=== PATIENT | male | born 1965 | race Caucasian/White ===

== ENCOUNTER 2017-08-02 07:10 | Inpatient (IN) | payer BC ==
[~2017-08-02 07:10] MED LIST: Dexamethasone 4 MG/ML 5 ML MDV ONE; Ketorolac 30 MG/ML SDV ONE; Lactated Ringers 1,000 ML IV SCH; Lactated Ringers 1,000 ML ONE; Lidocaine 1%/Sod Bicarbonate in NS 8.4% 1 ML Syringe PRN; Midazolam 1 MG/ML 2 ML SDV ONE; Morphine 10 MG/ML Syringe ONE; Morphine PF 1 MG/ML Amp ONE; Ondansetron 4 MG/2 ML SDV ONE; Propofol 200 MG/20 ML SDV ONE; Sodium Chloride 0.9% 10 ML Syringe FLUSH PRN; ceFAZolin 1 GM Vial ONE; fentaNYL 100 MCG/2 ML SDV ONE
[2017-08-02] MEDS ORDERED: Bupivacaine 0.25% 30 ML SDV ONE (07:40)
[2017-08-02] MEDS ORDERED: Vancomycin 1 GM SDV ONE (07:40)
[2017-08-02] MEDS ORDERED: ceFAZolin 1 GM Vial ONE (07:40)
[2017-08-02] MEDS ORDERED: Iodine/Sodium Iodide 2% Tincture 30 ML Bottle ONE (07:40)
--- NOTE | 2017-08-02 08:11 | PCM.PREANE ---
Preanesthetic Assessment - Anesthesia/Transfusion/Family Hx Anesthesia History: No Prior Anesthesia Family History of Anesthesia Reaction: No Transfusion History: No Prior Transfusion(s) Intubation History: Unknown - Review of Systems General: No Symptoms Pulmonary: No Symptoms (REMY with CPAP noted) Cardiovascular: No Symptoms (History of HTN) Gastrointestinal: No Symptoms (GERD) Neurological: No Symptoms ('chronic left sided low back pain without sciatica) Other: Reports: None (Adenomatous polyp of transverse colon noted on history.) - Physical Assessment NPO Status Date: 08/01/17 NPO Status Time: 19:30 Pulse: 85 O2 Sat by Pulse Oximetry: 95 Respiratory Rate: 16 Blood Pressure: 145/93 Temperature: 37.1 C Vital Signs: Last Vital Signs Temp 37.1 C 08/02/17 07:10 Pulse 85 08/02/17 07:10 Resp 16 08/02/17 07:10 BP 145/93 H 08/02/17 07:10 Pulse Ox 95 08/02/17 07:10 Height: 1.75 m Weight: 88 kg ASA Class: 2 Mental Status: Alert & Oriented x3 Airway Class: Mallampati = 2 Dentition: Reports: Normal Dentition, [place](s), [place] Thyro-Mental Finger Breadths: 3 Mouth Opening Finger Breadths: 3 ROM/Head Extension: Full Lungs: Clear to Auscultation, Normal Respiratory Effort Cardiovascular: Regular Rate, Regular Rhythm, No Murmurs - Lab Values: Laboratory Last Values MRSA (PCR) Negative 07/17/17 10:44 Platelets= 210,000 All other labs reviewed and noted and within acceptable ranges to proceed with scheduled procedure. - Imaging/EKG Impressions: EKG: NSR rate= 94, old inferior infarct CXR: negative Echocardiogram: EF= 68% - Allergies Allergies/Adverse Reactions: Allergies Allergy/AdvReac Type Severity Reaction Status Date / Time No Known Allergies Allergy Verified 08/01/17 12:52 - Anesthesia Plan Pre-Op Medication Ordered: None - Acknowledgements Anesthesia Type Planned: General Anesthesia, Spinal Pt an Appropriate Candidate for the Planned Anesthesia: Yes Alternatives and Risks of Anesthesia Discussed w Pt/Guardian: Yes Pt/Guardian Understands and Agrees with Anesthesia Plan: Yes PreAnesthesia Questionnaire HEENT History: Reports: None Cardiovascular History: Reports: Hypertension, Other (See Below) Other Cardiovascular History: palpitations, tachycardia Respiratory History: Reports: None Gastrointestinal History: Reports: None Genitourinary History: Reports: None 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 Musculoskeletal History: Reports: Back Pain, Chronic Neurological History: Reports: None Psychiatric History: Reports: None Endocrine/Metabolic History: Reports: None Hematologic History: Reports: None Immunologic History: Reports: None Oncologic (Cancer) History: Reports: None Dermatologic History: Reports: None - Past Surgical History Head Surgeries/Procedures: Reports: None HEENT Surgical History: Reports: None Cardiovascular Surgical History: Reports: None Respiratory Surgical History: Reports: None GI Surgical History: Reports: None Female Surgical History: Reports: None Male Surgical History: Reports: None Endocrine Surgical History: Reports: None Neurological Surgical History: Reports: None Musculoskeletal Surgical History: Reports: None Oncologic Surgical History: Reports: None Dermatological Surgical History: Reports: None - SUBSTANCE USE Smoking Status *Q: Never Smoker Second Hand Smoke Exposure: No Recreational Drug Use History: No - HOME MEDS Home Medications: Home Meds Calcium Carbonate/Vitamin D3 [Calcium 600 + Vit D 400 Softgl] 1 tab PO DAILY [History] Cholecalciferol (Vitamin D3) [Vitamin D3] 5,000 unit PO DAILY 08/01/17 [History] Lansoprazole [Prevacid] 15 mg PO Q48H 08/01/17 [History] Losartan [Cozaar] 100 mg PO DAILY 08/01/17 [History] amLODIPine [Norvasc] 5 mg PO DAILY 08/01/17 [History] - CURRENT (IN HOUSE) MEDS Current Meds: Current Medications Aspirin (Ecotrin) 325 mg PO BID MIKI Bisacodyl (Dulcolax) 5 mg PO DAILY PRN PRN Reason: Constipation Morphine Sulfate 8 mg/Epinephrine HCl 0.3 mg/Cefuroxime Sodium 750 mg/Ketorolac Tromethamine 30 mg/Sodium Chloride 27.9 ml 0 mg .XX ONETIME ONE Stop: 08/02/17 08:31 Cyclobenzaprine HCl (Flexeril) 10 mg PO TID PRN PRN Reason: Spasms Diphenhydramine HCl (Benadryl) 25 mg IVPUSH Q4H PRN PRN Reason: Nausea Docusate Sodium (Colace) 100 mg PO BID MIKI Famotidine (Pepcid) 20 mg PO BID MIKI Lactated Ringer's (Ringers, Lactated) 1,000 mls @ 125 mls/hr IV ASDIRECTED MIKI Stop: 08/02/17 23:00 Cefazolin Sodium/Dextrose 2 gm (/ Premix) 50 mls @ 100 mls/hr IV Q8H [facility] Stop: 08/02/17 23:29 Ketorolac Tromethamine (Toradol) 15 mg IVPUSH Q6H PRN PRN Reason: Pain Lidocaine/Sodium Bicarbonate (Buffered Lidocaine 1% In Ns 8.4%) 0.25 ml .XX ONETIME PRN PRN Reason: Prior to IV Start Stop: 08/02/17 12:00 Magnesium Hydroxide (Milk Of Magnesia) 30 ml PO BID PRN PRN Reason: Constipation Morphine Sulfate (Morphine) 2 mg IVPUSH Q2H PRN PRN Reason: Breakthrough Pain Naloxone HCl (Narcan) 0.1 mg IVPUSH Q5M PRN PRN Reason: Oversedation Ondansetron HCl (Zofran) 4 mg IVPUSH Q6H PRN PRN Reason: Nausea/Vomiting Oxycodone/Acetaminophen (Percocet 325-5 Mg) 1 - 2 tab PO Q4H PRN PRN Reason: Pain Senna (Senna) 8.6 mg PO BID PRN PRN Reason: Constipation Sodium Chloride (Saline Flush) 10 ml FLUSH ASDIRECTED PRN PRN Reason: Keep Vein Open Stop: 08/02/17 12:00 Discontinued Medications Bupivacaine HCl (Marcaine 0.25%) Confirm Administered Dose 30 ml .ROUTE .STK- MED ONE Stop: 08/02/17 07:41 Cefazolin Sodium (Ancef) Confirm Administered Dose 2 gm .ROUTE .STK-MED ONE Stop: 08/02/17 06:29 Cefazolin Sodium (Ancef) Confirm Administered Dose 2 gm .ROUTE .STK-MED ONE Stop: 08/02/17 07:41 Dexamethasone (Dexamethasone) Confirm Administered Dose 20 mg .ROUTE .STK-MED ONE Stop: 08/02/17 06:29 Fentanyl (Sublimaze) Confirm Administered Dose 100 mcg .ROUTE .STK-MED ONE Stop: 08/02/17 06:30 Lidocaine HCl (Xylocaine-Mpf 1%) Confirm Administered Dose 10 mls @ as directed .ROUTE .STK-MED ONE Stop: 08/02/17 06:29 Lactated Ringer's (Ringers, Lactated) Confirm Administered Dose 1,000 mls @ as directed .ROUTE .STK-MED ONE Stop: 08/02/17 06:29 Iodine (Iodine 2% Mild Tincture) Confirm Administered Dose 30 ml .ROUTE .STK- MED ONE Stop: 08/02/17 07:41 Ketorolac Tromethamine (Toradol) Confirm Administered Dose 30 mg .ROUTE .STK- MED ONE Stop: 08/02/17 06:29 Midazolam HCl (Versed 1 Mg/Ml) Confirm Administered Dose 2 mg .ROUTE .STK-MED ONE Stop: 08/02/17 06:30 Morphine Sulfate (Morphine) Confirm Administered Dose 10 mg .ROUTE .STK-MED ONE Stop: 08/02/17 06:30 Morphine Sulfate (Duramorph Pf) Confirm Administered Dose 1 mg .ROUTE .STK-MED ONE Stop: 08/02/17 06:06 Ondansetron HCl (Zofran) Confirm Administered Dose 4 mg .ROUTE .STK-MED ONE Stop: 08/02/17 06:29 Propofol (Diprivan 20 Ml) Confirm Administered Dose 400 mg .ROUTE .STK-MED ONE Stop: 08/02/17 06:30 Tranexamic Acid (Cyklokapron) Confirm Administered Dose 1,000 mg .ROUTE .STK- MED ONE Stop: 08/02/17 07:41 Vancomycin HCl (Vancomycin) Confirm Administered Dose 1 gm .ROUTE .STK-MED ONE Stop: 08/02/17 07:41
[2017-08-02] MEDS ORDERED: diphenhydrAMINE 50 MG/ML SDV IVPUSH PRN ×2 (09:20→10:00)
[2017-08-02] MEDS ORDERED: ePHEDrine 50 MG/ML SDV IVPUSH PRN (09:20)
[2017-08-02] MEDS ORDERED: fentaNYL 100 MCG/2 ML SDV IVPUSH PRN (09:20)
[2017-08-02] MEDS ORDERED: Ondansetron 4 MG/2 ML SDV IVPUSH PRN ×2 (09:20→10:00)
[2017-08-02] MEDS ORDERED: Metoclopramide 10 MG/2 ML SDV IV PRN (09:20)
[2017-08-02] MEDS ORDERED: Phenylephrine 1 MG in Sodium Chloride 0.9% 10 ML IV SCH (09:30)
[2017-08-02] MEDS ORDERED: Propofol 200 MG/20 ML SDV ONE (09:53)
[2017-08-02] MEDS ORDERED: Morphine 4 MG/ML Syringe IVPUSH PRN (10:00)
[2017-08-02] MEDS ORDERED: Naloxone 0.4 MG/ML SDV IVPUSH PRN (10:00)
[2017-08-02] MEDS ORDERED: Cyclobenzaprine 10 MG Tab PO PRN (10:00)
[2017-08-02] MEDS ORDERED: Magnesium Hydroxide 400 MG/5 ML Susp 30 ML Cup PO PRN (10:00)
[2017-08-02] MEDS ORDERED: Bisacodyl 5 MG Tab PO PRN (10:00)
[2017-08-02] MEDS ORDERED: Sennosides 8.6 MG Tab PO PRN (10:00)
[2017-08-02] MEDS ORDERED: Ketorolac 15 MG/ML SDV IVPUSH PRN (10:00)
[2017-08-02] MEDS ORDERED: Lactated Ringers 1,000 ML ONE (10:06)
[2017-08-02] MEDS: Morphine 8 MG, EPINEPHrine 0.3 MG, Cefuroxime 750 MG, Ketorolac 30 MG, Sodium Chloride ... ONE ×10 (10:20→14:43)
[2017-08-02] MEDS ORDERED: Phenylephrine/Normal Saline 100 MCG/ML 10 ML Syringe ONE (10:44)
[2017-08-02] MEDS ORDERED: Pantoprazole 40 MG Tab.CR PO SCH (11:00)
--- NOTE | 2017-08-02 11:08 | PCM.POSTAN ---
POST ANESTHESIA ASSESSMENT - MENTAL STATUS Mental Status: Alert - VITAL SIGNS Pulse Rate: 71 SaO2: 94 Resp Rate: 14 Blood Pressure: 127/85 Temperature: 36.7 C - RESPIRATORY Respiratory Status: Respiratory Rate WNL, Airway Patent, O2 Saturation Stable - CARDIOVASCULAR CV Status: Pulse Rate WNL, Blood Pressure Stable - GASTROINTESTINAL GI Status: No Symptoms - POST OP HYDRATION Hydration Status: Adequate & Stable
--- NOTE | 2017-08-02 11:38 | CR ---
Left knee: AP and lateral views of the left knee were obtained. Comparison: Previous left knee study of 01/18/17. Knee prosthesis is seen. Components are aligned. Underlying bony structures are intact. Soft tissue air is noted from the surgical procedure. Impression: 1. Satisfactory postoperative radiographic appearance of recently placed left knee prosthesis. Diagnostic code #2
[2017-08-02] MEDS: ceFAZolin 2 GM in Premix Bag 1 BAG IV SCH ×2 (17:05→17:06)
--- NOTE | 2017-08-02 19:55 | PCM.CONS ---
H&P History of Present Illness - General Date of Service: 08/02/17 Admit Problem/Dx: Admission Diagnosis/Problem Admission Diagnosis/Problem Osteoarthritis of knee Source of Information: Patient, Old Records, RN, RN Notes Reviewed, Other ( surgical notes) History Limitations: Reports: No Limitations - History of Present Illness Initial Comments - Free Text/Narative: Christos Pearson is a 52 yo male patient of Dr. Herrera who is post-operative day 0 of left TKA. Hospital medicine was consulted for post-operative medical care. At this time he is resting comfortably in bed. Pain is controlled. He denies any chest pain, shortness of breath, palpitations, nausea, or vomiting. He carries a history of: HTN, tachycardia, palpitations, chronic back pain, REMY on CPAP, GERD. He was never a smoker He is a full code. His primary care provider is Dr. Valdivia here at [facility]. Left Knee Pain Score (Numeric/FACES): 2 - Related Data Allergies/Adverse Reactions: Allergies Allergy/AdvReac Type Severity Reaction Status Date / Time No Known Allergies Allergy Verified 08/02/17 08:46 Home Medications: Home Meds Calcium Carbonate/Vitamin D3 [Calcium 600 + Vit D 400 Softgl] 1 tab PO DAILY [History] Cholecalciferol (Vitamin D3) [Vitamin D3] 5,000 unit PO DAILY 08/01/17 [History] Lansoprazole [Prevacid] 15 mg PO Q48H 08/01/17 [History] Losartan [Cozaar] 100 mg PO DAILY 08/01/17 [History] amLODIPine [Norvasc] 5 mg PO DAILY 08/01/17 [History] Multivitamin [Multivitamins] 1 each PO DAILY 08/02/17 [History] Past Medical History HEENT History: Reports: None Cardiovascular History: Reports: Hypertension, Other (See Below) Other Cardiovascular History: palpitations, tachycardia Respiratory History: Reports: None Gastrointestinal History: Reports: None Genitourinary History: Reports: None 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 Musculoskeletal History: Reports: Back Pain, Chronic Neurological History: Reports: None Psychiatric History: Reports: None Endocrine/Metabolic History: Reports: None Hematologic History: Reports: None Immunologic History: Reports: None Oncologic (Cancer) History: Reports: None Dermatologic History: Reports: None - Past Surgical History Head Surgeries/Procedures: Reports: None HEENT Surgical History: Reports: None Cardiovascular Surgical History: Reports: None Respiratory Surgical History: Reports: None GI Surgical History: Reports: None Male Surgical History: Reports: None Endocrine Surgical History: Reports: None Neurological Surgical History: Reports: None Musculoskeletal Surgical History: Reports: None Oncologic Surgical History: Reports: None Dermatological Surgical History: Reports: None Social & Family History - Tobacco Use Smoking Status *Q: Never Smoker Second Hand Smoke Exposure: No - Caffeine Use Caffeine Use: Reports: Coffee - Recreational Drug Use Recreational Drug Use: No H&P Review of Systems - Review of Systems: Review Of Systems: See Below General: Reports: No Symptoms. Denies: Fever, Chills, Malaise, Weakness, Fatigue, Decreased Appetite HEENT: Reports: No Symptoms. Denies: Headaches, Sinus Congestion, Sore Throat, Visual Changes Pulmonary: Reports: No Symptoms. Denies: Shortness of Breath, Wheezing, Pleuritic Chest Pain, Cough, Sputum Cardiovascular: Reports: No Symptoms. Denies: Chest Pain, Palpitations, Dyspnea on Exertion, Edema, Lightheadedness, Syncope Gastrointestinal: Reports: No Symptoms. Denies: Abdominal Pain, Anorexia, Constipation, Diarrhea, Difficulty Swallowing, Nausea, Vomiting Genitourinary: Reports: No Symptoms. Denies: Dysuria, Frequency, Burning, Pain , Urgency Musculoskeletal: Reports: Joint Pain (left knee ) Skin: Reports: No Symptoms Psychiatric: Reports: No Symptoms Neurological: Reports: No Symptoms Hematologic/Lymphatic: Reports: No Symptoms Immunologic: Reports: No Symptoms Exam - Exam Exam: See Below - Vital Signs Vital Signs: Last Vital Signs Temp 97.9 F 08/02/17 12:03 Pulse 98 08/02/17 15:22 Resp 16 08/02/17 18:00 BP 128/74 08/02/17 15:22 Pulse Ox 96 08/02/17 18:00 Weight: 211 lb 1.6 oz - Exam Quality Assessment: Supplemental Oxygen (2L), DVT Prophylaxis General: Alert, Oriented, Cooperative HEENT: Conjunctiva Clear, EACs Clear, EOMI, Hearing Intact, Mucosa Moist & [place] , Nares Patent, Normal Nasal Septum, Posterior Pharynx Clear, PERRLA Neck: Supple, Trachea Midline. No: JVD, Thyromegaly Lungs: Clear to Auscultation, Normal Respiratory Effort Cardiovascular: Regular Rate, Regular Rhythm GI/Abdominal Exam: Normal Bowel Sounds, Soft, Non-Tender, No Organomegaly, No Distention, No Abnormal Bruit, No Mass, Pelvis Stable (Male) Exam: Deferred Rectal (Males) Exam: Deferred Back Exam: Normal Inspection, Full Range of Motion Extremities: No Pedal Edema, Normal Capillary Refill, Other (VAZQUEZ bandage in place on left leg. Bandage is dry and intact. Cooling device in place. ) Peripheral Pulses: 3+: Radial (L), Radial (R), Posterior Tibial (L), Posterior Tibial (R), Dorsalis Pedis (L), Dorsalis Pedis (R) Skin: Warm, Dry, Intact Neurological: Cranial Nerves Intact (grossly) Neuro Extensive - Mental Status: Alert, Oriented x3, Normal Mood/Affect, Normal Cognition, Memory Intact Neuro Extensive - Motor, Sensory, Reflexes: CN II-XII Intact (grossly) Psychiatric: Alert, Normal Affect, Normal Mood Consult PN Assessment/Plan POD#: 0 Procedures: Procedures ASSAY OF BLOOD LIPOPROTEIN (12/07/15) ASSAY OF BLOOD/URIC ACID (01/18/17) ASSAY THYROID STIM HORMONE (12/07/15) C-REACTIVE PROTEIN (01/18/17) COMPLETE CBC W/AUTO DIFF WBC (01/18/17) CULTURE OTHR SPECIMN AEROBIC (01/18/17) ECG MONIT/REPRT UP TO 48 HRS (12/15/15) ECG MONIT/REPRT UP TO 48 HRS (12/15/15) METABOLIC PANEL TOTAL CA (12/07/15) MICROALBUMIN QUANTITATIVE (12/07/15) POLYSOM 6/> YRS 4/> ROSAURA (10/01/16) POLYSOM 6/>YRS CPAP 4/> PARM (10/16/16) ROUTINE VENIPUNCTURE (01/18/17) SMEAR GRAM STAIN (01/18/17) X-RAY EXAM L-S SPINE 2/3 VWS (04/27/16) X-RAY EXAM OF KNEE 3 (01/18/17) X-RAY EXAM THORAC SPINE 2VWS (04/27/16) (1) S/P total knee arthroplasty SNOMED Code(s): 6837397063655, 1977215919193 Code(s): Z96.659 - PRESENCE OF UNSPECIFIED ARTIFICIAL KNEE JOINT Priority: High Current Visit: Yes Qualifiers: Laterality: left Qualified Code(s): Z96.652 - Presence of left artificial knee joint (2) Osteoarthritis SNOMED Code(s): 206289408 Code(s): M19.90 - UNSPECIFIED OSTEOARTHRITIS, UNSPECIFIED SITE Priority: High Current Visit: Yes Qualifiers: Osteoarthritis location: knee Osteoarthritis type: primary Laterality: bilateral Qualified Code(s): M17.0 - Bilateral primary osteoarthritis of knee (3) REMY (obstructive sleep apnea) SNOMED Code(s): 70938673 Code(s): G47.33 - OBSTRUCTIVE SLEEP APNEA (ADULT) (PEDIATRIC) Priority: Medium Current Visit: Yes (4) GERD (gastroesophageal reflux disease) SNOMED Code(s): 439549680 Code(s): K21.9 - GASTRO-ESOPHAGEAL REFLUX DISEASE WITHOUT ESOPHAGITIS Priority: Medium Current Visit: No Qualifiers: Esophagitis presence: esophagitis presence not specified Qualified Code(s) : K21.9 - Gastro-esophageal reflux disease without esophagitis (5) Chronic back pain SNOMED Code(s): 465959974 Code(s): M54.9 - DORSALGIA, UNSPECIFIED; G89.29 - OTHER CHRONIC PAIN Priority: Low Current Visit: No Qualifiers: Back pain location: low back pain Back pain laterality: left Sciatica presence: without sciatica Qualified Code(s): M54.5 - Low back pain; G89.29 - Other chronic pain; G89.29 - Other chronic pain (6) HTN (hypertension) SNOMED Code(s): 20607043 Code(s): I10 - ESSENTIAL (PRIMARY) HYPERTENSION Priority: Low Current Visit: No Qualifiers: Hypertension type: essential hypertension Qualified Code(s): I10 - Essential (primary) hypertension Problem List Initiated/Reviewed/Updated: Yes Plan: I/P: Acute: S/P left total knee arthroplasty - post-operative day 0 -DVT prophylaxis and pain management per primary care team -PT/OT -IS/RT -Monitor oxygen saturation -Titrate oxygen as needed -Vital signs stable -Monitor laboratory results Osteoarthritis of bilateral knee -Pain management per primary care team Chronic: REMY on CPAP HTN - stable Chronic left sided lower back pain GERD palpitations - none recently tachycardia - absent now Plan: SW/CM for discharge planning GI prophylaxis Home medications as indicated Other orders as listed above Routine AM labs He is a full code. His PCP is Dr. Valdivia here at [facility] Thank you for allowing us to participate in the care of this patient!! Requesting Provider: Dr. Herrera Date Consult Requested: 08/02/17 Reason for Consult: Post-operative medical managment Patient History Reviewed: Yes Admission H&P Reviewed: Yes
[2017-08-02] MEDS ORDERED: Famotidine 20 MG Tab PO SCH (21:00)
[2017-08-02] MEDS: Docusate Sodium 100 MG Cap PO SCH (21:20)
[2017-08-03] MEDS: ceFAZolin 2 GM in Premix Bag 1 BAG IV SCH ×2 (00:43→10:17)
[2017-08-03] MEDS: Acetaminophen/oxyCODONE 325-5 MG Tab PO PRN ×3 (05:19→14:40)
--- NOTE | 2017-08-03 07:51 | PCM.CONSN ---
- General Info Date of Service: 08/03/17 Admission Dx/Problem (Free Text): Admission Diagnosis/Problem Admission Diagnosis/Problem Osteoarthritis of knee POD #1 Lt TKA, Dr. Herrera Pain controlled. Tolerating meals without nausea. Voiding. Working with PT/OT. Functional Status: Reports: Pain Controlled, Tolerating Diet, Ambulating, Urinating, Incentive Spirometry. Denies: New Symptoms - Review of Systems General: Reports: No Symptoms HEENT: Reports: No Symptoms Pulmonary: Reports: No Symptoms Cardiovascular: Reports: No Symptoms Gastrointestinal: Reports: No Symptoms Genitourinary: Reports: No Symptoms Musculoskeletal: Reports: Leg Pain Skin: Reports: No Symptoms Neurological: Reports: No Symptoms Psychiatric: Reports: No Symptoms - Patient Data Vitals - Most Recent: Last Vital Signs Temp 98.1 F 08/03/17 04:55 Pulse 85 08/03/17 04:55 Resp 16 08/03/17 04:55 BP 136/79 08/03/17 04:55 Pulse Ox 94 L 08/03/17 04:55 Weight - Most Recent: 204 lb 4.8 oz I&O - Last 24 Hours: Intake & Output 08/02/17 08/03/17 08/03/17 22:59 06:59 14:59 Intake Total 790 1300 Output Total 600 Balance 790 700 Lab Results Last 24 Hours: Laboratory Results - last 24 hr 08/03/17 08/03/17 Range/Units 05:45 05:45 WBC 9.59 H (4.23-9.07) K/mm3 RBC 3.51 L (4.63-6.08) M/mm3 Hgb 11.0 L (13.7-17.5) gm/L Hct 33.3 L (40.1-51.0) % MCV 94.9 H (79.0-92.2) fl MCH 31.3 (25.7-32.2) pg MCHC 33.0 (32.2-35.5) g/dl RDW Std Deviation 41.7 (35.1-43.9) fL Plt Count 169 (163-337) K/mm3 MPV 10.9 (9.4-12.3) fl Sodium 137 (136-145) mEq/L Potassium 4.0 (3.5-5.1) mEq/L Chloride 102 (98-107) mEq/L Carbon Dioxide 27 (21-32) mEq/L Anion Gap 12.0 (5-15) BUN 21 H (7-18) mg/dL Creatinine 1.1 (0.7-1.3) mg/dL Est Cr Clr Drug Dosing 75.14 mL/min Estimated GFR (MDRD) > 60 (>60) mL/min BUN/Creatinine Ratio 19.1 H (14-18) Glucose 214 H (74-106) mg/dL Calcium 8.1 L (8.5-10.1) mg/dL Total Bilirubin 0.2 (0.2-1.0) mg/dL AST 27 (15-37) U/L ALT 69 H (16-63) U/L Alkaline Phosphatase 54 (46-116) U/L Total Protein 5.7 L (6.4-8.2) g/dl Albumin 2.9 L (3.4-5.0) g/dl Globulin 2.8 gm/dL Albumin/Globulin Ratio 1.0 (1-2) Med Orders - Current: Current Medications Amlodipine Besylate (Norvasc) 5 mg PO DAILY [facility] Aspirin (Ecotrin) 325 mg PO BID [facility] Bisacodyl (Dulcolax) 5 mg PO DAILY PRN PRN Reason: Constipation Calcium Carbonate (Calcium Carbonate/Vitamin D 1500 Mg-200 Unit) 1 tab PO BEDTIME [facility] Cholecalciferol (Vitamin D3) 5,000 units PO DAILY [facility] Cyclobenzaprine HCl (Flexeril) 10 mg PO TID PRN PRN Reason: Spasms Docusate Sodium (Colace) 100 mg PO BID [facility] Last Admin: 08/02/17 21:20 Dose: 100 mg Cefazolin Sodium/Dextrose 2 gm (/ Premix) 50 mls @ 100 mls/hr IV Q8H [facility] Stop: 08/03/17 08:14 Last Admin: 08/03/17 00:43 Dose: 100 mls/hr Ketorolac Tromethamine (Toradol) 15 mg IVPUSH Q6H PRN PRN Reason: Pain Last Admin: 08/02/17 21:29 Dose: 15 mg Losartan Potassium (Cozaar) 100 mg PO DAILY [facility] Magnesium Hydroxide (Milk Of Magnesia) 30 ml PO BID PRN PRN Reason: Constipation Morphine Sulfate (Morphine) 2 mg IVPUSH Q2H PRN PRN Reason: Breakthrough Pain Multivitamins (Thera) 1 each PO DAILY [facility] Naloxone HCl (Narcan) 0.1 mg IVPUSH Q5M PRN PRN Reason: Oversedation Ondansetron HCl (Zofran) 4 mg IVPUSH Q6H PRN PRN Reason: Nausea/Vomiting Oxycodone/Acetaminophen (Percocet 325-5 Mg) 1 - 2 tab PO Q4H PRN PRN Reason: Pain Last Admin: 08/03/17 05:19 Dose: 1 tab Pantoprazole Sodium (Protonix) 40 mg PO Q48H [facility] Last Admin: 08/02/17 21:29 Dose: 40 mg Pneumococcal Polyvalent Vaccine (Pneumovax 23) 0.5 ml IM .ONCE ONE Stop: 08/03/17 09:01 Senna (Senna) 8.6 mg PO BID PRN PRN Reason: Constipation Discontinued Medications Bupivacaine HCl (Marcaine 0.25%) Confirm Administered Dose 30 ml .ROUTE .STK- MED ONE Stop: 08/02/17 07:41 Last Admin: 08/02/17 10:19 Dose: 30 ml Cefazolin Sodium (Ancef) Confirm Administered Dose 2 gm .ROUTE .STK-MED ONE Stop: 08/02/17 06:29 Last Admin: 08/02/17 10:14 Dose: 2 gm Cefazolin Sodium (Ancef) Confirm Administered Dose 2 gm .ROUTE .STK-MED ONE Stop: 08/02/17 07:41 Morphine Sulfate 8 mg/Epinephrine HCl 0.3 mg/Cefuroxime Sodium 750 mg/Ketorolac Tromethamine 30 mg/Sodium Chloride 27.9 ml 0 mg .XX ONETIME ONE Stop: 08/02/17 08:31 Last Admin: 08/02/17 14:43 Dose: Not Given Dexamethasone (Dexamethasone) Confirm Administered Dose 20 mg .ROUTE .STK-MED ONE Stop: 08/02/17 06:29 Diphenhydramine HCl (Benadryl) 25 mg IVPUSH Q4H PRN PRN Reason: Nausea Diphenhydramine HCl (Benadryl) 25 mg IVPUSH Q6H PRN PRN Reason: pruritis Stop: 08/02/17 18:00 Last Admin: 08/02/17 17:05 Dose: 25 mg Ephedrine Sulfate (Ephedrine Sulfate) 5 mg IVPUSH ASDIRECTED PRN PRN Reason: Hypotension Stop: 08/02/17 18:00 Famotidine (Pepcid) 20 mg PO BID [facility] Fentanyl (Sublimaze) Confirm Administered Dose 100 mcg .ROUTE .STK-MED ONE Stop: 08/02/17 06:30 Fentanyl (Sublimaze) 50 mcg IVPUSH Q5M PRN PRN Reason: Pain Stop: 08/02/17 18:00 Lactated Ringer's (Ringers, Lactated) 1,000 mls @ 125 mls/hr IV ASDIRECTED [facility] Stop: 08/02/17 23:00 Last Admin: 08/02/17 07:40 Dose: 125 mls/hr Lidocaine HCl (Xylocaine-Mpf 1%) Confirm Administered Dose 10 mls @ as directed .ROUTE .STK-MED ONE Stop: 08/02/17 06:29 Lactated Ringer's (Ringers, Lactated) Confirm Administered Dose 1,000 mls @ as directed .ROUTE .STK-MED ONE Stop: 08/02/17 06:29 Phenylephrine HCl 1 mg/ Sodium (Chloride) 10.1 mls @ 1 mls/sec IV TITRATE [facility] PRN Reason: Protocol Stop: 08/02/17 18:00 Lactated Ringer's (Ringers, Lactated) Confirm Administered Dose 1,000 mls @ as directed .ROUTE .STK-MED ONE Stop: 08/02/17 10:07 Iodine (Iodine 2% Mild Tincture) Confirm Administered Dose 30 ml .ROUTE .STK- MED ONE Stop: 08/02/17 07:41 Last Admin: 08/02/17 10:11 Dose: 18 ml Ketorolac Tromethamine (Toradol) Confirm Administered Dose 30 mg .ROUTE .STK- MED ONE Stop: 08/02/17 06:29 Lidocaine/Sodium Bicarbonate (Buffered Lidocaine 1% In Ns 8.4%) 0.25 ml .XX ONETIME PRN PRN Reason: Prior to IV Start Stop: 08/02/17 12:00 Last Admin: 08/02/17 07:39 Dose: 0.25 ml Metoclopramide HCl (Reglan) 10 mg IV ONETIME PRN PRN Reason: Nausea/Vomiting Stop: 08/02/17 18:00 Midazolam HCl (Versed 1 Mg/Ml) Confirm Administered Dose 2 mg .ROUTE .STK-MED ONE Stop: 08/02/17 06:30 Morphine Sulfate (Morphine) Confirm Administered Dose 10 mg .ROUTE .STK-MED ONE Stop: 08/02/17 06:30 Morphine Sulfate (Duramorph Pf) Confirm Administered Dose 1 mg .ROUTE .STK-MED ONE Stop: 08/02/17 06:06 Ondansetron HCl (Zofran) Confirm Administered Dose 4 mg .ROUTE .STK-MED ONE Stop: 08/02/17 06:29 Ondansetron HCl (Zofran) 4 mg IVPUSH ONETIME PRN PRN Reason: Nausea/Vomiting Stop: 08/02/17 18:00 Phenylephrine HCl (Phenylephrine In Ns 100 Mcg/Ml) Confirm Administered Dose 1 mg .ROUTE .STK-MED ONE Stop: 08/02/17 10:45 Propofol (Diprivan 20 Ml) Confirm Administered Dose 400 mg .ROUTE .STK-MED ONE Stop: 08/02/17 06:30 Propofol (Diprivan 20 Ml) Confirm Administered Dose 200 mg .ROUTE .STK-MED ONE Stop: 08/02/17 09:54 Sodium Chloride (Saline Flush) 10 ml FLUSH ASDIRECTED PRN PRN Reason: Keep Vein Open Stop: 08/02/17 12:00 Tranexamic Acid (Cyklokapron) Confirm Administered Dose 1,000 mg .ROUTE .STK- MED ONE Stop: 08/02/17 07:41 Last Admin: 08/02/17 10:26 Dose: 1,000 mg Vancomycin HCl (Vancomycin) Confirm Administered Dose 1 gm .ROUTE .STK-MED ONE Stop: 08/02/17 07:41 Last Admin: 08/02/17 10:22 Dose: 1 gm - Exam Quality Assessment: DVT Prophylaxis General: Alert, Oriented HEENT: Pupils Equal, EOMI, Mucous Membr. Moist/[place] Neck: Supple Lungs: Clear to Auscultation, Normal Respiratory Effort Cardiovascular: Regular Rate, Regular Rhythm GI/Abdominal Exam: Normal Bowel Sounds, Soft, Non-Tender (Male) Exam: Deferred Extremities: Other (teds, ice to lt knee) Peripheral Pulses: 2+: Dorsalis Pedis (L), Dorsalis Pedis (R) Neurological: No New Focal Deficit Psy/Mental Status: Alert, Normal Affect, Normal Mood Consult PN Assessment/Plan POD#: 1 Procedures: Procedures ASSAY OF BLOOD LIPOPROTEIN (12/07/15) ASSAY OF BLOOD/URIC ACID (01/18/17) ASSAY THYROID STIM HORMONE (12/07/15) C-REACTIVE PROTEIN (01/18/17) COMPLETE CBC W/AUTO DIFF WBC (01/18/17) CULTURE OTHR SPECIMN AEROBIC (01/18/17) ECG MONIT/REPRT UP TO 48 HRS (12/15/15) ECG MONIT/REPRT UP TO 48 HRS (12/15/15) METABOLIC PANEL TOTAL CA (12/07/15) MICROALBUMIN QUANTITATIVE (12/07/15) POLYSOM 6/> YRS 4/> ROSAURA (10/01/16) POLYSOM 6/>YRS CPAP 4/> PARM (10/16/16) ROUTINE VENIPUNCTURE (01/18/17) SMEAR GRAM STAIN (01/18/17) X-RAY EXAM L-S SPINE 2/3 VWS (04/27/16) X-RAY EXAM OF KNEE 3 (01/18/17) X-RAY EXAM THORAC SPINE 2VWS (04/27/16) (1) S/P total knee arthroplasty SNOMED Code(s): 4453965167208, 8260722811068 Code(s): Z96.659 - PRESENCE OF UNSPECIFIED ARTIFICIAL KNEE JOINT Priority: High Current Visit: Yes Qualifiers: Laterality: left Qualified Code(s): Z96.652 - Presence of left artificial knee joint (2) Osteoarthritis SNOMED Code(s): 803387358 Code(s): M19.90 - UNSPECIFIED OSTEOARTHRITIS, UNSPECIFIED SITE Priority: High Current Visit: Yes Qualifiers: Osteoarthritis location: knee Osteoarthritis type: primary Laterality: bilateral Qualified Code(s): M17.0 - Bilateral primary osteoarthritis of knee (3) Elevated blood sugar SNOMED Code(s): 29471118 Code(s): R73.9 - HYPERGLYCEMIA, UNSPECIFIED Priority: Medium Current Visit: Yes (4) REMY (obstructive sleep apnea) SNOMED Code(s): 71763137 Code(s): G47.33 - OBSTRUCTIVE SLEEP APNEA (ADULT) (PEDIATRIC) Priority: Medium Current Visit: Yes (5) Chronic back pain SNOMED Code(s): 990988550 Code(s): M54.9 - DORSALGIA, UNSPECIFIED; G89.29 - OTHER CHRONIC PAIN Priority: Low Current Visit: No Qualifiers: Back pain location: low back pain Back pain laterality: left Sciatica presence: without sciatica Qualified Code(s): M54.5 - Low back pain; G89.29 - Other chronic pain; G89.29 - Other chronic pain (6) GERD (gastroesophageal reflux disease) SNOMED Code(s): 065375381 Code(s): K21.9 - GASTRO-ESOPHAGEAL REFLUX DISEASE WITHOUT ESOPHAGITIS Priority: Medium Current Visit: No Qualifiers: Esophagitis presence: esophagitis presence not specified Qualified Code(s) : K21.9 - Gastro-esophageal reflux disease without esophagitis (7) HTN (hypertension) SNOMED Code(s): 46558167 Code(s): I10 - ESSENTIAL (PRIMARY) HYPERTENSION Priority: Low Current Visit: No Qualifiers: Hypertension type: essential hypertension Qualified Code(s): I10 - Essential (primary) hypertension Problem List Initiated/Reviewed/Updated: Yes My Orders Last 24 Hours: My Active Orders 08/03/17 07:48 A1C [GLYCOSYLATED HEMOGLOBIN,HGBA1C] [CHEM] Routine Plan: I/P: Acute: S/P left total knee arthroplasty - post-operative day 1 -DVT prophylaxis and pain management per primary care team -PT/OT -IS/RT -Vital signs stable --Hgb 11.0 today Osteoarthritis of bilateral knee -Pain management per primary care team Elevated blood glucose--214 this morning -A1C today --->>7.3 --Recommend recheck with PCP and CDE consult early next week for follow up. Chronic: REMY on CPAP HTN - stable Chronic left sided lower back pain GERD palpitations - none recently tachycardia - absent now Plan: SW/CM for discharge planning--Patient doing well. OK for DC home today from Hospitalist standpoint GI prophylaxis He is a full code. His PCP is Dr. Valdivia here at [facility]
--- NOTE | 2017-08-03 08:24 | PCM48HPAN ---
Post Anesthesia Note - EVALUATION WITHIN 48HRS OF ANESTHETIC Vital Signs in Normal Range: Yes Patient Participated in Evaluation: Yes Respiratory Function Stable: Yes Airway Patent: Yes Cardiovascular Function Stable: Yes Hydration Status Stable: Yes Pain Control Satisfactory: Yes Nausea and Vomiting Control Satisfactory: Yes Mental Status Recovered: Yes - COMMENTS/OBSERVATIONS Free Text/Narrative:: Patient up and walking around, no complaints of headache, weakness, numbness or tingling in his legs.
[2017-08-03] MEDS ORDERED: Aspirin 325 MG Tab.EC PO SCH (09:00)
[2017-08-03] MEDS ORDERED: amLODIPine 5 MG Tab PO SCH (09:00)
[2017-08-03] MEDS ORDERED: Cholecalciferol (Vitamin D3) 1,000 Unit Tab PO SCH (09:00)
[2017-08-03] MEDS ORDERED: Losartan 100 MG Tab PO SCH (09:00)
[2017-08-03] MEDS ORDERED: Pneumococcal Polyvalent-23 Vaccine 0.5 ML SDV IM ONE (09:00)
[2017-08-03] MEDS ORDERED: Multivitamins,Therapeutic Tab PO SCH (09:00)
[2017-08-03 10:20] VITALS: BP 150/90
[2017-08-03] MEDS: Docusate Sodium 100 MG Cap PO SCH (10:20)
--- NOTE | 2017-08-03 16:08 | PCM.SURGPN ---
- General Info Date of Service: 08/03/17 POD#: 1 Functional Status: Reports: Pain Controlled, Tolerating Diet, Ambulating, Urinating, Incentive Spirometry - Review of Systems Musculoskeletal: Reports: Other (The pt and feel that the pt is prepared for discharge to home.) - Patient Data Vitals - Most Recent: Last Vital Signs Temp 97.5 F 08/03/17 08:50 Pulse 80 08/03/17 08:50 Resp 16 08/03/17 08:50 BP 150/90 H 08/03/17 10:19 Pulse Ox 96 08/03/17 08:50 Weight - Most Recent: 204 lb 4.8 oz I&O - Last 24 Hours: Intake & Output 08/03/17 08/03/17 08/03/17 06:59 14:59 22:59 Intake Total 1300 440 240 Output Total 600 Balance 700 440 240 Lab Results Last 24 Hrs: Laboratory Results - last 24 hr 08/03/17 08/03/17 08/03/17 Range/Units 05:45 05:45 05:45 WBC 9.59 H (4.23-9.07) K/mm3 RBC 3.51 L (4.63-6.08) M/mm3 Hgb 11.0 L (13.7-17.5) gm/L Hct 33.3 L (40.1-51.0) % MCV 94.9 H (79.0-92.2) fl MCH 31.3 (25.7-32.2) pg MCHC 33.0 (32.2-35.5) g/dl RDW Std Deviation 41.7 (35.1-43.9) fL Plt Count 169 (163-337) K/mm3 MPV 10.9 (9.4-12.3) fl Sodium 137 (136-145) mEq/L Potassium 4.0 (3.5-5.1) mEq/L Chloride 102 (98-107) mEq/L Carbon Dioxide 27 (21-32) mEq/L Anion Gap 12.0 (5-15) BUN 21 H (7-18) mg/dL Creatinine 1.1 (0.7-1.3) mg/dL Est Cr Clr Drug Dosing 75.14 mL/min Estimated GFR (MDRD) > 60 (>60) mL/min BUN/Creatinine Ratio 19.1 H (14-18) Glucose 214 H (74-106) mg/dL Hemoglobin A1c 7.30 H (4.50-6.20) % Calcium 8.1 L (8.5-10.1) mg/dL Total Bilirubin 0.2 (0.2-1.0) mg/dL AST 27 (15-37) U/L ALT 69 H (16-63) U/L Alkaline Phosphatase 54 (46-116) U/L Total Protein 5.7 L (6.4-8.2) g/dl Albumin 2.9 L (3.4-5.0) g/dl Globulin 2.8 gm/dL Albumin/Globulin Ratio 1.0 (1-2) Med Orders - Current: Current Medications Amlodipine Besylate (Norvasc) 5 mg PO DAILY [facility] Last Admin: 08/03/17 10:19 Dose: 5 mg Aspirin (Ecotrin) 325 mg PO BID [facility] Last Admin: 08/03/17 10:19 Dose: 325 mg Bisacodyl (Dulcolax) 5 mg PO DAILY PRN PRN Reason: Constipation Calcium Carbonate (Calcium Carbonate/Vitamin D 1500 Mg-200 Unit) 1 tab PO BEDTIME [facility] Cholecalciferol (Vitamin D3) 5,000 units PO DAILY [facility] Last Admin: 08/03/17 10:19 Dose: 5,000 units Cyclobenzaprine HCl (Flexeril) 10 mg PO TID PRN PRN Reason: Spasms Last Admin: 08/03/17 13:50 Dose: 10 mg Docusate Sodium (Colace) 100 mg PO BID [facility] Last Admin: 08/03/17 10:20 Dose: 100 mg Ketorolac Tromethamine (Toradol) 15 mg IVPUSH Q6H PRN PRN Reason: Pain Last Admin: 08/02/17 21:29 Dose: 15 mg Losartan Potassium (Cozaar) 100 mg PO DAILY [facility] Last Admin: 08/03/17 10:19 Dose: 100 mg Magnesium Hydroxide (Milk Of Magnesia) 30 ml PO BID PRN PRN Reason: Constipation Morphine Sulfate (Morphine) 2 mg IVPUSH Q2H PRN PRN Reason: Breakthrough Pain Multivitamins (Thera) 1 each PO DAILY [facility] Last Admin: 08/03/17 10:20 Dose: 1 each Naloxone HCl (Narcan) 0.1 mg IVPUSH Q5M PRN PRN Reason: Oversedation Ondansetron HCl (Zofran) 4 mg IVPUSH Q6H PRN PRN Reason: Nausea/Vomiting Oxycodone/Acetaminophen (Percocet 325-5 Mg) 1 - 2 tab PO Q4H PRN PRN Reason: Pain Last Admin: 08/03/17 14:40 Dose: 2 tab Pantoprazole Sodium (Protonix) 40 mg PO Q48H [facility] Last Admin: 08/02/17 21:29 Dose: 40 mg Senna (Senna) 8.6 mg PO BID PRN PRN Reason: Constipation Discontinued Medications Bupivacaine HCl (Marcaine 0.25%) Confirm Administered Dose 30 ml .ROUTE .STK- MED ONE Stop: 08/02/17 07:41 Last Admin: 08/02/17 10:19 Dose: 30 ml Cefazolin Sodium (Ancef) Confirm Administered Dose 2 gm .ROUTE .STK-MED ONE Stop: 08/02/17 06:29 Last Admin: 08/02/17 10:14 Dose: 2 gm Cefazolin Sodium (Ancef) Confirm Administered Dose 2 gm .ROUTE .STK-MED ONE Stop: 08/02/17 07:41 Morphine Sulfate 8 mg/Epinephrine HCl 0.3 mg/Cefuroxime Sodium 750 mg/Ketorolac Tromethamine 30 mg/Sodium Chloride 27.9 ml 0 mg .XX ONETIME ONE Stop: 08/02/17 08:31 Last Admin: 08/02/17 14:43 Dose: Not Given Dexamethasone (Dexamethasone) Confirm Administered Dose 20 mg .ROUTE .STK-MED ONE Stop: 08/02/17 06:29 Diphenhydramine HCl (Benadryl) 25 mg IVPUSH Q4H PRN PRN Reason: Nausea Diphenhydramine HCl (Benadryl) 25 mg IVPUSH Q6H PRN PRN Reason: pruritis Stop: 08/02/17 18:00 Last Admin: 08/02/17 17:05 Dose: 25 mg Ephedrine Sulfate (Ephedrine Sulfate) 5 mg IVPUSH ASDIRECTED PRN PRN Reason: Hypotension Stop: 08/02/17 18:00 Famotidine (Pepcid) 20 mg PO BID [facility] Fentanyl (Sublimaze) Confirm Administered Dose 100 mcg .ROUTE .STK-MED ONE Stop: 08/02/17 06:30 Fentanyl (Sublimaze) 50 mcg IVPUSH Q5M PRN PRN Reason: Pain Stop: 08/02/17 18:00 Lactated Ringer's (Ringers, Lactated) 1,000 mls @ 125 mls/hr IV ASDIRECTED [facility] Stop: 08/02/17 23:00 Last Admin: 08/02/17 07:40 Dose: 125 mls/hr Lidocaine HCl (Xylocaine-Mpf 1%) Confirm Administered Dose 10 mls @ as directed .ROUTE .STK-MED ONE Stop: 08/02/17 06:29 Lactated Ringer's (Ringers, Lactated) Confirm Administered Dose 1,000 mls @ as directed .ROUTE .STK-MED ONE Stop: 08/02/17 06:29 Cefazolin Sodium/Dextrose 2 gm (/ Premix) 50 mls @ 100 mls/hr IV Q8H [facility] Stop: 08/03/17 08:14 Last Admin: 08/03/17 10:17 Dose: 100 mls/hr Phenylephrine HCl 1 mg/ Sodium (Chloride) 10.1 mls @ 1 mls/sec IV TITRATE [facility] PRN Reason: Protocol Stop: 08/02/17 18:00 Lactated Ringer's (Ringers, Lactated) Confirm Administered Dose 1,000 mls @ as directed .ROUTE .STK-MED ONE Stop: 08/02/17 10:07 Iodine (Iodine 2% Mild Tincture) Confirm Administered Dose 30 ml .ROUTE .STK- MED ONE Stop: 08/02/17 07:41 Last Admin: 08/02/17 10:11 Dose: 18 ml Ketorolac Tromethamine (Toradol) Confirm Administered Dose 30 mg .ROUTE .STK- MED ONE Stop: 08/02/17 06:29 Lidocaine/Sodium Bicarbonate (Buffered Lidocaine 1% In Ns 8.4%) 0.25 ml .XX ONETIME PRN PRN Reason: Prior to IV Start Stop: 08/02/17 12:00 Last Admin: 08/02/17 07:39 Dose: 0.25 ml Metoclopramide HCl (Reglan) 10 mg IV ONETIME PRN PRN Reason: Nausea/Vomiting Stop: 08/02/17 18:00 Midazolam HCl (Versed 1 Mg/Ml) Confirm Administered Dose 2 mg .ROUTE .STK-MED ONE Stop: 08/02/17 06:30 Morphine Sulfate (Morphine) Confirm Administered Dose 10 mg .ROUTE .STK-MED ONE Stop: 08/02/17 06:30 Morphine Sulfate (Duramorph Pf) Confirm Administered Dose 1 mg .ROUTE .STK-MED ONE Stop: 08/02/17 06:06 Ondansetron HCl (Zofran) Confirm Administered Dose 4 mg .ROUTE .STK-MED ONE Stop: 08/02/17 06:29 Ondansetron HCl (Zofran) 4 mg IVPUSH ONETIME PRN PRN Reason: Nausea/Vomiting Stop: 08/02/17 18:00 Phenylephrine HCl (Phenylephrine In Ns 100 Mcg/Ml) Confirm Administered Dose 1 mg .ROUTE .STK-MED ONE Stop: 08/02/17 10:45 Propofol (Diprivan 20 Ml) Confirm Administered Dose 400 mg .ROUTE .STK-MED ONE Stop: 08/02/17 06:30 Propofol (Diprivan 20 Ml) Confirm Administered Dose 200 mg .ROUTE .STK-MED ONE Stop: 08/02/17 09:54 Sodium Chloride (Saline Flush) 10 ml FLUSH ASDIRECTED PRN PRN Reason: Keep Vein Open Stop: 08/02/17 12:00 Tranexamic Acid (Cyklokapron) Confirm Administered Dose 1,000 mg .ROUTE .STK- MED ONE Stop: 08/02/17 07:41 Last Admin: 08/02/17 10:26 Dose: 1,000 mg Vancomycin HCl (Vancomycin) Confirm Administered Dose 1 gm .ROUTE .STK-MED ONE Stop: 08/02/17 07:41 Last Admin: 08/02/17 10:22 Dose: 1 gm - Exam Wound/Incisions: Dressing Dry and Intact General: Alert, Cooperative, No Acute Distress Lungs: Normal Respiratory Effort Extremities: Other (NVS intact for BLE. Darling's negative. Independent SLR LLE. ) - Problem List Review Problem List Initiated/Reviewed/Updated: Yes - My Orders Last 24 Hours: Active Orders 24 hr Category Date Time Status CPAP Adult [RT BiPAP/CPAP] [RC] ASDIRECTED Care 08/02/17 20:57 Active Ready for Discharge [RC] PER UNIT ROUTINE Care 08/03/17 10:46 Active Aspirin [Ecotrin] Med 08/03/17 09:00 Active 325 mg PO BID Calcium Carbonate/Vitamin D3 [Calcium Carbonate/Vitamin Med 08/03/17 21:00 Active D 1500 MG-200 Unit] 1 tab PO BEDTIME Cholecalciferol (Vitamin D3) [Vitamin D3] Med 08/03/17 09:00 Active 5,000 units PO DAILY Docusate Sodium [Colace] Med 08/02/17 21:00 Active 100 mg PO BID Losartan [Cozaar] Med 08/03/17 09:00 Active 100 mg PO DAILY Multivitamins,Therapeutic [Thera] Med 08/03/17 09:00 Active 1 each PO DAILY amLODIPine [Norvasc] Med 08/03/17 09:00 Active 5 mg PO DAILY Medication Orders Amlodipine Besylate (Norvasc) 5 mg PO DAILY [facility] Last Admin: 08/03/17 10:19 Dose: 5 mg Aspirin (Ecotrin) 325 mg PO BID [facility] Last Admin: 08/03/17 10:19 Dose: 325 mg Bisacodyl (Dulcolax) 5 mg PO DAILY PRN PRN Reason: Constipation Calcium Carbonate (Calcium Carbonate/Vitamin D 1500 Mg-200 Unit) 1 tab PO BEDTIME [facility] Cholecalciferol (Vitamin D3) 5,000 units PO DAILY [facility] Last Admin: 08/03/17 10:19 Dose: 5,000 units Cyclobenzaprine HCl (Flexeril) 10 mg PO TID PRN PRN Reason: Spasms Last Admin: 08/03/17 13:50 Dose: 10 mg Docusate Sodium (Colace) 100 mg PO BID [facility] Last Admin: 08/03/17 10:20 Dose: 100 mg Admin: 08/02/17 21:20 Dose: 100 mg Ketorolac Tromethamine (Toradol) 15 mg IVPUSH Q6H PRN PRN Reason: Pain Last Admin: 08/02/17 21:29 Dose: 15 mg Losartan Potassium (Cozaar) 100 mg PO DAILY [facility] Last Admin: 08/03/17 10:19 Dose: 100 mg Magnesium Hydroxide (Milk Of Magnesia) 30 ml PO BID PRN PRN Reason: Constipation Morphine Sulfate (Morphine) 2 mg IVPUSH Q2H PRN PRN Reason: Breakthrough Pain Multivitamins (Thera) 1 each PO DAILY [facility] Last Admin: 08/03/17 10:20 Dose: 1 each Naloxone HCl (Narcan) 0.1 mg IVPUSH Q5M PRN PRN Reason: Oversedation Ondansetron HCl (Zofran) 4 mg IVPUSH Q6H PRN PRN Reason: Nausea/Vomiting Oxycodone/Acetaminophen (Percocet 325-5 Mg) 1 - 2 tab PO Q4H PRN PRN Reason: Pain Last Admin: 08/03/17 14:40 Dose: 2 tab Admin: 08/03/17 10:20 Dose: 2 tab Admin: 08/03/17 05:19 Dose: 1 tab Pantoprazole Sodium (Protonix) 40 mg PO Q48H [facility] Last Admin: 08/02/17 21:29 Dose: 40 mg Senna (Senna) 8.6 mg PO BID PRN PRN Reason: Constipation - Assessment Assessment (Free Text/Narrative):: POD#1 - left TKA - Plan Plan (Free Text/Narrative):: 1. Discharge to home today. 2. ASA 325mg PO BID. Frequent mobility, TEDs. 3. Outpatient therapy. 4. Hgb 11.0 today. The pt's case was discussed with Dr. Herrera.
--- NOTE | 2017-08-03 16:09 | PCM.DCSUM1 ---
Discharge Summary - Hospital Course Brief History: Christos is a 52 yo male who underwent left TKA with Dr. Herrera on . The procedure was completed under spinal anesthesia. The pt tolerated the procedure well and was admitted to the Medical-Surgical Unit. Medical management was provided by the Hospitalist service. The pt's Hospital course was uneventful. The pt's Hgb on POD#1 was 11.0. On POD#1, 325mg ASA BID was initiated for VTE prophylaxis. SCDs and TEDs were also ordered. A Mepilex dressing was placed at the incision site at the time of surgery and remained clean and dry. The pt participated in P.T. and O.T. and progressed well. The pt was allowed to WBAT. On POD#1, the pt was deemed appropriate to discharge to home with his . - Discharge Data Discharge Date: 08/03/17 Discharge Disposition: Home, Self-Care 01 Condition: Good - Patient Summary/Data Consults: Consultations 08/02/17 06:55 Consult to Physician [CONS] Routine OT Evaluation and Treatment [CONS] Routine 08/02/17 07:09 PT Evaluation and Treatment [CONS] Routine - Patient Instructions Diet: Usual Diet as Tolerated, Drink 8-10+ Glasses/Day, Diabetic Diet Activity: Apply Ice, As Tolerated, Elevate Extremity, Full Weight Bearing Driving: Do Not Drive Showering/Bathing: May Shower Wound/Incision Care: Keep Operative Site/Wound Site Clean and Dry, Do NOT Change Dressing Notify Provider of: Fever, Increased Pain, Swelling and Redness, Drainage, Nausea and/or Vomiting Other/Special Instructions: Please get up and moving around every hour while awake. This helps to prevent blood clots. Please use your walker and have help as needed. Please take a 325mg aspirin twice daily after surgery. This helps to prevent blood clots. The aspirin is not being used for pain management , but for blood clot prevention, so please do not miss a dose of the medication. Complete the therapy exercises you were taught in the Hospital. Schedule for P.T. Use the pain medication as needed. The medication may cause drowsiness and constipation. Contact your primary care provider for instructions if you are constipated. You may use a stool softener like docusate sodium or Colace 100mg twice daily and/or a laxative like Miralax daily for constipation. Use the ice machine often. Elevate the limb to decrease swelling. Keep the Mepilex dressing in place until follow-up at the Clinic. Notify the Clinic if the dressing is saturated. Wear the LUCIANO hose during the day and you may remove these at night. Eat a diet high in protein as this well help with healing. Schedule an appointment with your primary care provider for 'routine post-op care'. Call the Clinic with questions or concerns - [phone]. - Discharge Plan Prescriptions/Med Rec: Acetaminophen/oxyCODONE [Percocet 325-5 MG] 1 - 2 tab PO Q4H PRN #60 tablet PRN Reason: Pain Aspirin [Ecotrin] 325 mg PO BID #84 tab.ec Cyclobenzaprine [Flexeril] 10 mg PO TID PRN #40 tablet PRN Reason: Spasms Home Medications: Home Meds Calcium Carbonate/Vitamin D3 [Calcium 600 + Vit D 400 Softgl] 1 tab PO DAILY [History] Cholecalciferol (Vitamin D3) [Vitamin D3] 5,000 unit PO DAILY 08/01/17 [History] Lansoprazole [Prevacid] 15 mg PO Q48H 08/01/17 [History] Losartan [Cozaar] 100 mg PO DAILY 08/01/17 [History] amLODIPine [Norvasc] 5 mg PO DAILY 08/01/17 [History] Multivitamin [Multivitamins] 1 each PO DAILY 08/02/17 [History] Acetaminophen/oxyCODONE [Percocet 325-5 MG] 1 - 2 tab PO Q4H PRN #60 tablet [Rx] Aspirin [Ecotrin] 325 mg PO BID #84 tab.ec 08/03/17 [Rx] Bisacodyl [Dulcolax] 5 mg PO DAILY PRN tablet 08/03/17 [Rx] Cyclobenzaprine [Flexeril] 10 mg PO TID PRN #40 tablet 08/03/17 [Rx] Docusate Sodium [Colace] 100 mg PO BID cap 08/03/17 [Rx] Magnesium Hydroxide [Milk of Magnesia] 30 ml PO BID PRN cup 08/03/17 [Rx] Sennosides [Senna] 8.6 mg PO BID PRN tablet 08/03/17 [Rx] Patient Handouts: Total Knee Replacement, Care After, Hyperglycemia, Easy-to- Read, Total Knee Replacement, [id number] Referrals: Ana Mccloud PA-C [[employer]] - 08/08/17 9:30 am (f/u 08/15/17 1130 am with Ana at [facility]) - Patient Data Vitals - Most Recent: Last Vital Signs Temp 97.5 F 08/03/17 08:50 Pulse 80 08/03/17 08:50 Resp 16 08/03/17 08:50 BP 150/90 H 08/03/17 10:19 Pulse Ox 96 08/03/17 08:50 Weight - Most Recent: 204 lb 4.8 oz I&O - Last 24 hours: Intake & Output 08/03/17 08/03/17 08/03/17 06:59 14:59 22:59 Intake Total 1300 440 240 Output Total 600 Balance 700 440 240 Lab Results - Last 24 hrs: Laboratory Results - last 24 hr 08/03/17 08/03/17 08/03/17 Range/Units 05:45 05:45 05:45 WBC 9.59 H (4.23-9.07) K/mm3 RBC 3.51 L (4.63-6.08) M/mm3 Hgb 11.0 L (13.7-17.5) gm/L Hct 33.3 L (40.1-51.0) % MCV 94.9 H (79.0-92.2) fl MCH 31.3 (25.7-32.2) pg MCHC 33.0 (32.2-35.5) g/dl RDW Std Deviation 41.7 (35.1-43.9) fL Plt Count 169 (163-337) K/mm3 MPV 10.9 (9.4-12.3) fl Sodium 137 (136-145) mEq/L Potassium 4.0 (3.5-5.1) mEq/L Chloride 102 (98-107) mEq/L Carbon Dioxide 27 (21-32) mEq/L Anion Gap 12.0 (5-15) BUN 21 H (7-18) mg/dL Creatinine 1.1 (0.7-1.3) mg/dL Est Cr Clr Drug Dosing 75.14 mL/min Estimated GFR (MDRD) > 60 (>60) mL/min BUN/Creatinine Ratio 19.1 H (14-18) Glucose 214 H (74-106) mg/dL Hemoglobin A1c 7.30 H (4.50-6.20) % Calcium 8.1 L (8.5-10.1) mg/dL Total Bilirubin 0.2 (0.2-1.0) mg/dL AST 27 (15-37) U/L ALT 69 H (16-63) U/L Alkaline Phosphatase 54 (46-116) U/L Total Protein 5.7 L (6.4-8.2) g/dl Albumin 2.9 L (3.4-5.0) g/dl Globulin 2.8 gm/dL Albumin/Globulin Ratio 1.0 (1-2) Med Orders - Current: Current Medications Amlodipine Besylate (Norvasc) 5 mg PO DAILY [facility] Last Admin: 08/03/17 10:19 Dose: 5 mg Aspirin (Ecotrin) 325 mg PO BID [facility] Last Admin: 08/03/17 10:19 Dose: 325 mg Bisacodyl (Dulcolax) 5 mg PO DAILY PRN PRN Reason: Constipation Calcium Carbonate (Calcium Carbonate/Vitamin D 1500 Mg-200 Unit) 1 tab PO BEDTIME [facility] Cholecalciferol (Vitamin D3) 5,000 units PO DAILY [facility] Last Admin: 08/03/17 10:19 Dose: 5,000 units Cyclobenzaprine HCl (Flexeril) 10 mg PO TID PRN PRN Reason: Spasms Last Admin: 08/03/17 13:50 Dose: 10 mg Docusate Sodium (Colace) 100 mg PO BID [facility] Last Admin: 08/03/17 10:20 Dose: 100 mg Ketorolac Tromethamine (Toradol) 15 mg IVPUSH Q6H PRN PRN Reason: Pain Last Admin: 08/02/17 21:29 Dose: 15 mg Losartan Potassium (Cozaar) 100 mg PO DAILY [facility] Last Admin: 08/03/17 10:19 Dose: 100 mg Magnesium Hydroxide (Milk Of Magnesia) 30 ml PO BID PRN PRN Reason: Constipation Morphine Sulfate (Morphine) 2 mg IVPUSH Q2H PRN PRN Reason: Breakthrough Pain Multivitamins (Thera) 1 each PO DAILY [facility] Last Admin: 08/03/17 10:20 Dose: 1 each Naloxone HCl (Narcan) 0.1 mg IVPUSH Q5M PRN PRN Reason: Oversedation Ondansetron HCl (Zofran) 4 mg IVPUSH Q6H PRN PRN Reason: Nausea/Vomiting Oxycodone/Acetaminophen (Percocet 325-5 Mg) 1 - 2 tab PO Q4H PRN PRN Reason: Pain Last Admin: 08/03/17 14:40 Dose: 2 tab Pantoprazole Sodium (Protonix) 40 mg PO Q48H [facility] Last Admin: 08/02/17 21:29 Dose: 40 mg Senna (Senna) 8.6 mg PO BID PRN PRN Reason: Constipation Discontinued Medications Bupivacaine HCl (Marcaine 0.25%) Confirm Administered Dose 30 ml .ROUTE .STK- MED ONE Stop: 08/02/17 07:41 Last Admin: 08/02/17 10:19 Dose: 30 ml Cefazolin Sodium (Ancef) Confirm Administered Dose 2 gm .ROUTE .STK-MED ONE Stop: 08/02/17 06:29 Last Admin: 08/02/17 10:14 Dose: 2 gm Cefazolin Sodium (Ancef) Confirm Administered Dose 2 gm .ROUTE .STK-MED ONE Stop: 08/02/17 07:41 Morphine Sulfate 8 mg/Epinephrine HCl 0.3 mg/Cefuroxime Sodium 750 mg/Ketorolac Tromethamine 30 mg/Sodium Chloride 27.9 ml 0 mg .XX ONETIME ONE Stop: 08/02/17 08:31 Last Admin: 08/02/17 14:43 Dose: Not Given Dexamethasone (Dexamethasone) Confirm Administered Dose 20 mg .ROUTE .STK-MED ONE Stop: 08/02/17 06:29 Diphenhydramine HCl (Benadryl) 25 mg IVPUSH Q4H PRN PRN Reason: Nausea Diphenhydramine HCl (Benadryl) 25 mg IVPUSH Q6H PRN PRN Reason: pruritis Stop: 08/02/17 18:00 Last Admin: 08/02/17 17:05 Dose: 25 mg Ephedrine Sulfate (Ephedrine Sulfate) 5 mg IVPUSH ASDIRECTED PRN PRN Reason: Hypotension Stop: 08/02/17 18:00 Famotidine (Pepcid) 20 mg PO BID [facility] Fentanyl (Sublimaze) Confirm Administered Dose 100 mcg .ROUTE .STK-MED ONE Stop: 08/02/17 06:30 Fentanyl (Sublimaze) 50 mcg IVPUSH Q5M PRN PRN Reason: Pain Stop: 08/02/17 18:00 Lactated Ringer's (Ringers, Lactated) 1,000 mls @ 125 mls/hr IV ASDIRECTED [facility] Stop: 08/02/17 23:00 Last Admin: 08/02/17 07:40 Dose: 125 mls/hr Lidocaine HCl (Xylocaine-Mpf 1%) Confirm Administered Dose 10 mls @ as directed .ROUTE .STK-MED ONE Stop: 08/02/17 06:29 Lactated Ringer's (Ringers, Lactated) Confirm Administered Dose 1,000 mls @ as directed .ROUTE .STK-MED ONE Stop: 08/02/17 06:29 Cefazolin Sodium/Dextrose 2 gm (/ Premix) 50 mls @ 100 mls/hr IV Q8H [facility] Stop: 08/03/17 08:14 Last Admin: 08/03/17 10:17 Dose: 100 mls/hr Phenylephrine HCl 1 mg/ Sodium (Chloride) 10.1 mls @ 1 mls/sec IV TITRATE [facility] PRN Reason: Protocol Stop: 08/02/17 18:00 Lactated Ringer's (Ringers, Lactated) Confirm Administered Dose 1,000 mls @ as directed .ROUTE .STK-MED ONE Stop: 08/02/17 10:07 Iodine (Iodine 2% Mild Tincture) Confirm Administered Dose 30 ml .ROUTE .STK- MED ONE Stop: 08/02/17 07:41 Last Admin: 08/02/17 10:11 Dose: 18 ml Ketorolac Tromethamine (Toradol) Confirm Administered Dose 30 mg .ROUTE .STK- MED ONE Stop: 08/02/17 06:29 Lidocaine/Sodium Bicarbonate (Buffered Lidocaine 1% In Ns 8.4%) 0.25 ml .XX ONETIME PRN PRN Reason: Prior to IV Start Stop: 08/02/17 12:00 Last Admin: 08/02/17 07:39 Dose: 0.25 ml Metoclopramide HCl (Reglan) 10 mg IV ONETIME PRN PRN Reason: Nausea/Vomiting Stop: 08/02/17 18:00 Midazolam HCl (Versed 1 Mg/Ml) Confirm Administered Dose 2 mg .ROUTE .STK-MED ONE Stop: 08/02/17 06:30 Morphine Sulfate (Morphine) Confirm Administered Dose 10 mg .ROUTE .STK-MED ONE Stop: 08/02/17 06:30 Morphine Sulfate (Duramorph Pf) Confirm Administered Dose 1 mg .ROUTE .STK-MED ONE Stop: 08/02/17 06:06 Ondansetron HCl (Zofran) Confirm Administered Dose 4 mg .ROUTE .STK-MED ONE Stop: 08/02/17 06:29 Ondansetron HCl (Zofran) 4 mg IVPUSH ONETIME PRN PRN Reason: Nausea/Vomiting Stop: 08/02/17 18:00 Phenylephrine HCl (Phenylephrine In Ns 100 Mcg/Ml) Confirm Administered Dose 1 mg .ROUTE .STK-MED ONE Stop: 08/02/17 10:45 Propofol (Diprivan 20 Ml) Confirm Administered Dose 400 mg .ROUTE .STK-MED ONE Stop: 08/02/17 06:30 Propofol (Diprivan 20 Ml) Confirm Administered Dose 200 mg .ROUTE .STK-MED ONE Stop: 08/02/17 09:54 Sodium Chloride (Saline Flush) 10 ml FLUSH ASDIRECTED PRN PRN Reason: Keep Vein Open Stop: 08/02/17 12:00 Tranexamic Acid (Cyklokapron) Confirm Administered Dose 1,000 mg .ROUTE .STK- MED ONE Stop: 08/02/17 07:41 Last Admin: 08/02/17 10:26 Dose: 1,000 mg Vancomycin HCl (Vancomycin) Confirm Administered Dose 1 gm .ROUTE .STK-MED ONE Stop: 08/02/17 07:41 Last Admin: 08/02/17 10:22 Dose: 1 gm *Q Meaningful Use (DIS) - VTE *Q VTE Criteria *Q: - Stroke *Q Stroke Criteria *Q: - AMI *Q AMI Criteria *Q:
[2017-08-03] MEDS ORDERED: Calcium Carbonate/Vitamin D3 1500 MG-200 Units Tab PO SCH (21:00)
--- NOTE | 2017-08-08 11:19 | PCM.OPNOTE ---
- General Post-Op/Procedure Note Date of Surgery/Procedure: 08/02/17 Operative Procedure(s): left total knee arthroplasty Pre Op Diagnosis: left knee osteoarthrosis Post-Op Diagnosis: Same Anesthesia Technique: Local, MAC, Spinal Primary Surgeon: Lio Herrera Anesthesia Provider: Alena Zavala Instrument/Control Technician: Ana Mccloud Instrument/Control Technician: Yamila Haynes EBL in mLs: 250 Complications: None Condition: Good
--- NOTE | 2017-08-08 23:47 | OR ---
DATE OF OPERATION: 08/02/2017 SURGEON: Lio Herrera MD OPERATION PERFORMED: Left total knee arthroplasty. PREOPERATIVE DIAGNOSIS: Left knee osteoarthrosis. POSTOPERATIVE DIAGNOSIS: Left knee osteoarthrosis. ANESTHESIA: Local MAC with spinal. ANESTHESIA PROVIDER: Alena Zavala CRNA. GOLDBEATER: Ana Mccloud PA-C and Yamila Haynes LPN. ESTIMATED BLOOD LOSS: 250 mL COMPLICATIONS: None. CONDITION: Stable. IMPLANTS: 1. [place] size 6 PS press-fit femur. 2. Javi size 6 press-fit tibial baseplate. 3. [place] size 6, 9 mm PS X3 polyethylene. 4. Javi 32 x 10 mm press-fit patella. DESCRIPTION OF PROCEDURE: The patient was identified in the preop holding area. Proper site was marked and identified by the surgeon. The patient was taken back to the operating theater. After adequate anesthesia, the patient's left lower extremity had a nonsterile tourniquet applied and it was then sterilely prepped and draped in the usual sterile fashion. OR timeout was performed. The patient received 2 g IV Ancef. At this time, left lower extremity was exsanguinated. Tourniquet was insufflated to 300 mmHg. Standard medial parapatellar incision was made. Medial parapatellar arthrotomy was created. Deep fibers of the MCL were raised and anterior fat pad was resected. At this time, attention was turned to the patella. Patella measured 25, it was resected to a 15 for a 32 x 10 mm patella. Drill holes were then drilled and found to be in adequate position. The drill was then drilled in the distal femur and the intramedullary distal femoral cutting guide was then placed. 8 mm was resected off the distal femur and was found to be an adequate resection. Sizing guide was placed. It was found to be a size 6 PS press-fit femur that was shown on the implant record at the beginning of this dictation. The drill holes were drilled for the epicondylar axis using [place] line and epicondyles as reference. At this time, the 4-in - 1 cutting block was placed. An anterior posterior and anterior and posterior chamfer cuts were then completed. The correct size box cut was then placed and the box cut was completed and found to be an adequate resection. Attention was turned to the tibia. The posterior medial lateral retractors were placed. The extramedullary tibial guide was placed. It was placed in the old footprint of the ACL. It was aligned with the center of the ankle and 0 degrees of slope, 9 mm was then resected off the unaffected lateral side. There was found to be an acceptable reduction. At this time, posterior osteophytes were removed along with medial and lateral meniscus. A trial implant was placed with a correct sized tibia that was mentioned at the beginning of the dictation. A size 6, 9 mm PS X3 polyethylene was then placed. The patient's knee was brought through range of motion. The patella was tracking centrally and was stable to varus and valgus stress. Alignment was found to be roughly at 0 degrees. The tibia was stamped and drilled in proper rotation. The universal tibial base plate was impacted into place. Next, the 6 PS press-fit femur was impacted into place and the size 6, 9 mm PS X3 polyethylene was placed. The patient's knee was brought into full extension. The patella was then press-fit into place at this time. Tourniquet was deflated. One liter dilute Betadine solution was irrigated through the knee along with 3 L of pulse lavage irrigation with Ancef. Periarticular injection was then completed. The patient's knee was brought through a range of motion. Knee was found to be stable to varus valgus stress, the patella was tracking centrally with full range of motion. At this time, a #2 barbed suture was used for closure of the medial parapatellar arthrotomy. Topical tranexamic acid was placed. 2-0 Vicryl was used subcutaneously, a running 3-0 Monocryl was used subcuticularly. The patient tolerated the procedure well and was sent to the PACU in stable condition. MMODAL /[id number] KARTHIKEYAN
== END 2017-08-03 14:51 | disposition home or self-care (01) | DRG 302 ==
LOC: JD.MS 07:10
PROVIDERS: ADMIT Orthopaedic Surgery; ATTEND Orthopaedic Surgery
PROC: 0SRD0J9 Replacement of Left Knee Joint with Synthetic Substitute, Cemented, Open Approach (ICD-10-PCS; principal; 2017-08-02)
DX: M17.12 Unilateral primary osteoarthritis, left knee (principal); E66.9 Obesity, unspecified; Z68.31 Body mass index [BMI] 31.0-31.9, adult; I10 Essential (primary) hypertension; K21.9 Gastro-esophageal reflux disease without esophagitis; G89.29 Other chronic pain; M54.5 Low back pain; Z79.899 Other long term (current) drug therapy
CPT/HCPCS: 01400; 36415; 73560-26-LT; 73560-LT; 80053; 83036; 85027; 87641; 94762; 97110-GP; 97116-GP; 97161-GP; 97165-GO; 97535-GO; A9270-GY; C1776; J0171; J0690; J0697; J1100; J1200; J1885; J2250; J2270; J2274; J2405; J2704; J3010; J3370; J3490; J7120

== ENCOUNTER 2018-01-31 07:44 | Day surgery (SDC) | payer BC ==
[~2018-01-31 07:44] MED LIST changes: -Dexamethasone 4 MG/ML 5 ML MDV ONE; -Ketorolac 30 MG/ML SDV ONE; -Lactated Ringers 1,000 ML ONE; +Lidocaine 1%/Sod Bicarbonate in NS 8.4% 1 ML Syringe IDERM PRN; -Lidocaine 1%/Sod Bicarbonate in NS 8.4% 1 ML Syringe PRN; -Midazolam 1 MG/ML 2 ML SDV ONE; -Morphine 10 MG/ML Syringe ONE; -Morphine PF 1 MG/ML Amp ONE; -Ondansetron 4 MG/2 ML SDV ONE; -Propofol 200 MG/20 ML SDV ONE; -ceFAZolin 1 GM Vial ONE; -fentaNYL 100 MCG/2 ML SDV ONE
[2018-01-31] MEDS ORDERED: Bupivacaine 0.25% 30 ML SDV ONE (08:24)
[2018-01-31] MEDS ORDERED: Midazolam 1 MG/ML 2 ML SDV ONE (08:56)
[2018-01-31] MEDS ORDERED: Propofol 200 MG/20 ML SDV ONE (08:56)
[2018-01-31] MEDS ORDERED: fentaNYL 250 MCG/5 ML SDV ONE (08:56)
[2018-01-31] MEDS ORDERED: Lidocaine 1% 4 ML ONE (08:58)
[2018-01-31] MEDS ORDERED: Ondansetron 4 MG/2 ML SDV ONE (08:58)
[2018-01-31] MEDS ORDERED: Dexamethasone 4 MG/ML 5 ML MDV ONE (08:58)
[2018-01-31] MEDS ORDERED: ceFAZolin 1 GM Vial ONE (08:59)
[2018-01-31] MEDS ORDERED: EPINEPHrine 1 MG/ML SDV ONE (09:17)
[2018-01-31] MEDS ORDERED: Ketorolac 30 MG/ML SDV ONE (10:06)
--- NOTE | 2018-01-31 10:26 | PCM.POSTAN ---
POST ANESTHESIA ASSESSMENT - MENTAL STATUS Mental Status: Alert, Oriented - VITAL SIGNS Pulse Rate: 85 SaO2: 96 Resp Rate: 12 Blood Pressure: 133/85 Temperature: 36.7 C - RESPIRATORY Respiratory Status: Respiratory Rate WNL, Airway Patent, O2 Saturation Stable, Supplemental Oxygen - CARDIOVASCULAR CV Status: Pulse Rate WNL, Blood Pressure Stable - GASTROINTESTINAL GI Status: No Symptoms - PAIN Pain Score: 0 - POST OP HYDRATION Hydration Status: Adequate & Stable
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
[2018-01-31] MEDS ORDERED: fentaNYL 100 MCG/2 ML SDV IVPUSH PRN (10:31)
[2018-01-31] MEDS ORDERED: Ondansetron 4 MG/2 ML SDV IVPUSH PRN (10:31)
[2018-01-31] MEDS ORDERED: Meperidine PF 50 MG/ML Syringe IVPUSH PRN (10:31)
[2018-01-31] MEDS ORDERED: diphenhydrAMINE 50 MG/ML SDV IVPUSH PRN (10:31)
[2018-01-31] MEDS ORDERED: Acetaminophen/HYDROcodone 325-5 MG Tab PO PRN (11:31)
[2018-01-31 12:29] VITALS: BP 157/97
--- NOTE | 2018-02-02 08:31 | PCM.OPNOTE ---
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
--- NOTE | 2018-02-02 09:43 | OR ---
DATE OF OPERATION: 01/31/2018 SURGEON: Lio Herrera MD OPERATION PERFORMED: Left knee video arthroscopy with partial synovectomy. PREOPERATIVE DIAGNOSIS: Painful left total knee arthroplasty. POSTOPERATIVE DIAGNOSIS: Synovial overgrowth with impingement of left total knee arthroplasty. ANESTHESIA: General LMA with local. ANESTHESIA PROVIDER: Sherman José. ASSISTANTS: Ana Mccloud PA-C. ESTIMATED BLOOD LOSS: 5 mL. COMPLICATIONS: None. CONDITION: Stable DESCRIPTION OF PROCEDURE: The patient was identified in the preop holding area where proper site was marked and identified by the surgeon. The patient was taken back to the operating theater after adequate anesthesia, the patient's right lower extremity was placed in a well-leg ibarra in a dependent position. The left lower extremity had a nonsterile tourniquet applied and was then placed in a C-clamp ibarra. Foot of bed was then lowered. The left lower extremity was then sterilely prepped and draped in the usual sterile fashion. OR time-out was performed. The patient received 2 g of IV Ancef. The left lower extremity was exsanguinated. Tourniquet was insufflated to 225 mmHg. Standard anterolateral portal incision was made. The scope trocar was introduced. At this time, there was noted to be a minor amount of scar tissue near the lateral side. The patella otherwise was well seated. There were no signs of instability to probing. There was no loose foreign bodies noted in the medial and lateral gutters or in the suprapatellar pouch. At this time, attention was turned to the medial compartment. There was significant synovial overgrowth in the medial compartment and it was impinged in between the joint line. Otherwise, no signs of lucencies. The other components appeared well-seated. At this time, a partial synovectomy was done to the rim of the polyethylene of the medial synovium. There were no loose foreign bodies in the notch. Attention was turned to the lateral compartment. There was real no synovial overgrowth in the notch. At this time, an anterior medial portal had also been created and we also did use this as well as a superior posterior portal, which we did perform a synovectomy at the lateral side of the patella as well. At this time, there was noted to be no impingement otherwise and the patella was tracking centrally. An excess saline was drained from the knee. A 3-0 nylon simple sutures was used for closure of the skin. The patient had a sterile soft dressing applied and was sent to PACU in stable condition. MICHELLE /[id number]
== END 2018-01-31 12:00 | disposition home or self-care (01) ==
LOC: JD.SDS 07:44
PROVIDERS: ATTEND Orthopaedic Surgery
DX: M67.262 Synovial hypertrophy, not elsewhere classified, left lower leg (principal); M25.862 Other specified joint disorders, left knee; G89.29 Other chronic pain; M25.562 Pain in left knee; I10 Essential (primary) hypertension; E78.00 Pure hypercholesterolemia, unspecified; Z79.82 Long term (current) use of aspirin; Z79.899 Other long term (current) drug therapy; K21.9 Gastro-esophageal reflux disease without esophagitis; G47.33 Obstructive sleep apnea (adult) (pediatric); M96.830 Postprocedural hemorrhage of a musculoskeletal structure following a musculoskeletal system procedure
CPT/HCPCS: 29875; 87641; 99283; A9270; J0171; J0690; J1100; J1885; J2001; J2250; J2405; J3010; J3490; J7120; 01400; J2704

== ENCOUNTER 2018-01-31 17:56 | Emergency (ER) | payer BC ==
--- NOTE | 2018-01-31 18:21 | EDM.PDOC ---
ED HPI GENERAL MEDICAL PROBLEM - General Chief Complaint: Wound Recheck Stated Complaint: POST SURGICAL BLEEDING-LEFT LEG Time Seen by Provider: 01/31/18 18:07 Source of Information: Reports: Patient History Limitations: Reports: No Limitations - History of Present Illness INITIAL COMMENTS - FREE TEXT/NARRATIVE: 52 y/o M presents with post-op bleeding from L knee after arthroscopic synovectomy today with Dr. Herrera. Patient states he felt well after surgery and was discharged earlier today. About 30-40 minutes ago noticed blood soaking through his eloina-wrap bandage on the lateral aspect of his knee. Otherwise feels fine. Pain is controlled. No foot numbness/tingling weakness. Denies blood thinner use or history of bleeding disorder. Called clinic but clinic was closed so came here for eval. Left Knee Pain Score (Numeric/FACES): 4 - Related Data Allergies Allergy/AdvReac Type Severity Reaction Status Date / Time No Known Allergies Allergy Verified 01/31/18 18:11 Home Meds: Home Meds Calcium Carbonate/Vitamin D3 [Calcium 600 + Vit D 400 Softgl] 1 tab PO DAILY [History] Cholecalciferol (Vitamin D3) [Vitamin D3] 5,000 unit PO DAILY 08/01/17 [History] Lansoprazole [Prevacid] 15 mg PO Q48H 08/01/17 [History] Losartan [Cozaar] 100 mg PO DAILY 08/01/17 [History] amLODIPine [Norvasc] 5 mg PO DAILY 08/01/17 [History] Multivitamin [Multivitamins] 1 each PO DAILY 08/02/17 [History] Acetaminophen/HYDROcodone [[place] 325-5 MG] 1 - 2 tab PO Q6H PRN #20 tablet 01/31 [Rx] Aspirin 325 mg PO BID #84 tab 01/31/18 [Rx] Past Medical History HEENT History: Reports: None Cardiovascular History: Reports: Hypertension, Other (See Below) Other Cardiovascular History: palpitations, tachycardia Respiratory History: Reports: Sleep Apnea Gastrointestinal History: Reports: Colon Polyp, GERD Genitourinary History: Reports: None 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 Musculoskeletal History: Reports: Back Pain, Chronic Neurological History: Reports: None Psychiatric History: Reports: None Endocrine/Metabolic History: Reports: Other (See Below) Other Endocrine/Metabolic History: hyperglycemia Hematologic History: Reports: None Immunologic History: Reports: None Oncologic (Cancer) History: Reports: None Dermatologic History: Reports: None - Past Surgical History Head Surgeries/Procedures: Reports: None HEENT Surgical History: Reports: LASIK Cardiovascular Surgical History: Reports: None Respiratory Surgical History: Reports: None GI Surgical History: Reports: Colonoscopy Female Surgical History: Reports: None Male Surgical History: Reports: None Endocrine Surgical History: Reports: None Neurological Surgical History: Reports: None Musculoskeletal Surgical History: Reports: Knee Replacement Oncologic Surgical History: Reports: None Dermatological Surgical History: Reports: None Social & Family History - Caffeine Use Caffeine Use: Reports: Coffee ED ROS GENERAL - Review of Systems Review Of Systems: See Below Constitutional: Reports: No Symptoms Respiratory: Reports: No Symptoms Cardiovascular: Reports: No Symptoms GI/Abdominal: Reports: No Symptoms Musculoskeletal: Reports: Leg Pain Skin: Denies: Pallor Neurological: Reports: No Symptoms Hematologic/Lymphatic: Denies: Easy Bleeding ED EXAM, GENERAL - Physical Exam Exam: See Below Exam Limited By: No Limitations General Appearance: Alert, WD/WN, No Apparent Distress Ears: Normal External Exam Nose: Normal Inspection Throat/Mouth: Normal Inspection, Normal Oropharynx, Normal Voice, No Airway Compromise Course - Vital Signs Last Recorded V/S: Last Vital Signs Temp 38.2 C H 01/31/18 18:06 Pulse 101 H 01/31/18 20:30 Resp 16 01/31/18 18:06 BP 157/96 H 01/31/18 20:30 Pulse Ox 97 01/31/18 18:06 - Orders/Labs/Meds Orders: Active Orders 24 hr Category Date Time Status Cooling Warming Measures [RC] ASDIRECTED Care 01/31/18 18:43 Active Ice Bag [Ice Therapy] [OM.PC] Routine Oth 01/31/18 18:43 Ordered Meds: Medications Discontinued Medications Generic Name Dose Route Start Last Admin Trade Name Freq PRN Reason Stop Dose Admin Oxycodone/Acetaminophen 1 tab 01/31/18 18:43 01/31/18 18:48 Percocet 325-5 Mg PO 01/31/18 18:44 1 tab ONETIME ONE Administration - Re-Assessments/Exams Free Text/Narrative Re-Assessment/Exam: 01/31/18 18:[address] Herrera who states that post-op venous bleeding after this operation is not unusual, he was no where near a potential arterial source, and that I may redress the wound and observe. We took down the post-op dressing. 3 small incisional wounds are present on the anterior knee. There is oozing of blood from the lateral superior wound. Sutures are intact. Moderate knee swelling. I replaced the dressing and re-wrapped the left lower extremity from the foot to the knee with moderate compression. We elevated the knee, will provide ice-pack, and will observe here for an hour. The patient is febrile ( 38.2) and mildly tachycardic with HR 110's. He is several hours post-op. He feels well and has no systemic complaints. Departure - Departure Time of Disposition: 21:00 Disposition: Home, Self-Care 01 Clinical Impression: Postoperative bleeding from incision - Discharge Information Instructions: Wound Care, Adult Referrals: Elvia Ahuja MD [Primary Care Provider] - Forms: ED Department Discharge Additional Instructions: 1. Keep leg elevated when possible. Ice knee on and off through tomorrow or as directed by Dr. Herrera. 2. Return to the ED if you have worsening bleeding or any new concerning symptoms. - My Orders Last 24 Hours: My Active Orders 01/31/18 18:43 Cooling Warming Measures [RC] ASDIRECTED Ice Bag [Ice Therapy] [OM.PC] Routine - Assessment/Plan Last 24 Hours: My Active Orders 01/31/18 18:43 Cooling Warming Measures [RC] ASDIRECTED Ice Bag [Ice Therapy] [OM.PC] Routine
[2018-01-31] MEDS ORDERED: Acetaminophen/oxyCODONE 325-5 MG Tab PO ONE (18:43)
[2018-01-31 20:51] VITALS: BP 157/96
== END 2018-01-31 20:30 | disposition home or self-care (01) ==
LOC: JD.ED 17:56
DX: M96.830 Postprocedural hemorrhage of a musculoskeletal structure following a musculoskeletal system procedure (principal); M25.562 Pain in left knee; I10 Essential (primary) hypertension; K21.9 Gastro-esophageal reflux disease without esophagitis; Z79.82 Long term (current) use of aspirin; Z79.899 Other long term (current) drug therapy
CPT/HCPCS: 99283; A9270